=== PATIENT | male | born 1990 ===

== ENCOUNTER 2018-10-13 19:05 | Emergency (ER) | payer OTHER, SELFPAY ==
--- NOTE | 2018-10-13 20:47 | ED PDOC ---
HPI: CCC, URI, Sore Throat Time Seen by Provider: 10/13/18 20:21 Chief Complaint (Nursing): ENT Problem Chief Complaint (Provider): sore throat History Per: Patient History/Exam Limitations: no limitations Onset/Duration Of Symptoms: Days (2) Current Symptoms Are (Timing): Still Present Location Of Pain: Throat Additional Complaint(s): 28 y/o male presents for evaluation of sore throat x 2 days. Associated cough, mouth sores, and subjective fever. Denies headache, ear pain, nausea/vomiting, chest pain, shortness of breath, palpitations, abdominal pain, changes in bowel movements, recent travel, sick contacts. Patient took one Percocet prior to arrival for pain. Past Medical History Reviewed: Historical Data, Nursing Documentation, Vital Signs Vital Signs: Last Vital Signs Temp 98.3 F 10/13/18 19:44 Pulse 98 H 10/13/18 19:44 Resp 16 10/13/18 19:44 BP 122/77 10/13/18 19:44 Pulse Ox 100 10/13/18 19:44 - Medical History PMH: No Chronic Diseases - Family History Family History: States: No Known Family Hx - Living Arrangements Living Arrangements: Alone - Home Medications Home Medications: Ambulatory Orders Medication Instructions Recorded Naproxen [Naprosyn] 500 mg PO Q12 PRN #20 tablet 10/13/18 Non-Formulary 1 applic TOP PRN PRN #45 ml 10/13/18 - Allergies Allergies/Adverse Reactions: Allergies Allergy/AdvReac Type Severity Reaction Status Date / Time Penicillins Allergy RASH Verified 10/13/18 19:44 Review of Systems ROS Statement: Except As Marked, All Systems Reviewed And Found Negative ENT: Positive for: Mouth Pain, Throat Pain Respiratory: Positive for: Cough Physical Exam - Reviewed Nursing Documentation Reviewed: Yes Vital Signs Reviewed: Yes - Physical Exam Appears: Positive for: Well, Non-toxic, No Acute Distress Head Exam: Positive for: ATRAUMATIC, NORMAL INSPECTION, NORMOCEPHALIC Skin: Positive for: Normal Color Eye Exam: Positive for: Normal appearance ENT: Positive for: Pharyngeal Erythema, Other (round/oval erythematous flat lesions with yellow exudate centers noted inner lower lip, hard palate). Negative for: Tonsillar Exudate, Tonsillar Swelling Cardiovascular/Chest: Positive for: Regular Rate, Rhythm Respiratory: Positive for: Normal Breath Sounds Gastrointestinal/Abdominal: Positive for: Normal Exam Back: Positive for: Normal Inspection Extremity: Positive for: Normal ROM Neurologic/Psych: Positive for: Alert, Oriented (x3) - ECG O2 Sat by Pulse Oximetry: 100 - Progress ED Course And Treament: -rapid strep -influenza Patient educated on findings, discharged with rx magic mouthwash, naproxen Advised fluids, rest Follow up PMD within 2-3 days Return precautions given Disposition - Clinical Impression Clinical Impression: Sore throat (viral), Canker sores oral - Patient ED Disposition Is Patient to be Admitted: No Counseled Patient/Family Regarding: Studies Performed, Diagnosis, Need For Followup, Rx Given - Disposition Referrals: [facility] [Outside] Disposition: Routine/Home Disposition Time: 22:17 Condition: IMPROVED Prescriptions: Naproxen [Naprosyn] 500 mg PO Q12 PRN #20 tablet PRN Reason: Pain, Moderate (4-7) Non-Formulary 1 applic TOP PRN PRN #45 ml PRN Reason: mouth pain Instructions: Viral Pharyngitis, Mouth Sores Forms: [employer] (Persian)
[2018-10-14 00:04] VITALS: BP 121/72; PULSE 89; RESP 17; TEMP 97.9; O2SAT 98
== END 2018-10-13 22:55 | disposition home or self-care (01) ==
LOC: H.ER 19:05
DX: J02.9 Acute pharyngitis, unspecified (principal); K12.0 Recurrent oral aphthae; Z88.0 Allergy status to penicillin